=== PATIENT | male | born 1950 | race Caucasian/White ===

== ENCOUNTER 2019-03-12 21:57 | Observation (INO) ==
[2019-03-13] MEDS ORDERED: Morphine Sulfate 2 MG/ML SYRINGE IVP ONE ×2 (00:54→01:20)
--- NOTE | 2019-03-13 01:09 | Emergency Department Note ---
Disposition Clinical Impression: Cholecystitis Disposition: Admitted As Inpatient Condition: Good Forms: ED Satisfaction Letter, Work/School Release Time of Disposition: 01:17 Abdominal Pain HPI - General Chief Complaint: ED Abdominal Pain Stated Complaint: Abd Pain Time Seen by Provider: 03/13/19 01:04 Source: patient - History of Present Illness HPI Narrative: Patient 68-year-old gentleman who presents to the emergency department with chief complaint of right upper quadrant abdominal pain. The patient was transferred from the [place] after he presented with right upper quadrant abdominal pain and CT scan consistent with acute acalculous cholecystitis. The patient was seen in the emergency department over the weekend after having similar episode several resolved with Toradol. The patient was seen by surgery in the emergency department and offered admission at that time but stated he was feeling better and wish to follow up as an outpatient. The patient was seen by Dr. Gamboa in the office today but then this evening started having pain in his right upper quadrant around 7 PM. The patient states pain is sharp and not improved by anything nor is it worsened by anything. Pain Scale: 3 - Related Data Home Medications Medication Instructions Recorded Confirmed Amlodipine Besylate 10 mg PO DAILY 03/10/19 03/10/19 Aspirin [Adult Aspirin] 81 mg PO DAILY 03/10/19 03/10/19 Carvedilol [Coreg] 6.25 mg PO BID 03/10/19 03/10/19 Lisinopril 30 mg PO DAILY 03/10/19 03/10/19 Pravastatin Sodium [Pravachol] 40 mg PO DAILY 03/10/19 03/10/19 Previous Rx's Medication Instructions Recorded Amoxicillin/Clavulanate [Augmentin] 875 mg PO BIDWM #10 tablet 03/10/19 Allergies Allergy/AdvReac Type Severity Reaction Status Date / Time antihistamines AdvReac Numbness Uncoded 03/12/19 22:05 All systems ED: reviewed and negative except as stated. Abdominal Pain PMH - Past Medical History Medical history: Reports: hypertension Psychiatric history: Reports: no psych history - Social History Smoking status: Current every day smoker Alcohol use: Reports: none Drug use: Reports: none Physical Exam General: Conversant and pleasant interactive and nontoxic. Head: Normocephalic/atraumatic Eyes:PERRLA, EOMI, no conjunctivitis Nares: Without d/c. Ears: No erythema or d/c noted. Oralpharnyx: P&MMM noted, Neck: Supple, no JVD or CUSTOMER PROFESSIONAL noted. Cardovascular: regular rate and rhythm without murmur, brisk capillary refill, no peripheral edema. Lungs: Clear to ascultation bilaterally, non-labored Abd: Soft tender to palpation in the right upper quadrant, Non Distended, no guarding, no rebound. : Defered Extremities: moves all extremities equally Neuro: AOx3, no obvious gross neuro deficit Psych: Normal Affect Derm: No rash noted - General General appearance: alert, in no apparent distress Course Course Narrative: Given the patient's finding of his labs and CT scan and recent evaluation the case was discussed with Dr. Fay who is rayon coner for general surgery. The patient was admitted to the surgical service and will receive further care in the inpatient setting. Vital Signs Temperature 97.6 F 03/12/19 22:03 Pulse Rate 60 03/12/19 22:03 Respiratory Rate 16 03/12/19 22:03 Blood Pressure 126/66 03/12/19 22:03 O2 Sat by Pulse Oximetry 99 03/12/19 22:03 Temperature 97.6 F 03/12/19 22:03 Pulse Rate 60 03/12/19 22:03 Respiratory Rate 16 03/12/19 22:03 Blood Pressure 126/66 03/12/19 22:03 O2 Sat by Pulse Oximetry 99 03/12/19 22:03 Oxygen Delivery Oxygen Delivery Room Air
[2019-03-13] MEDS ORDERED: Ondansetron 4 MG/2 ML VIAL IVP PRN ×2 (02:44→18:14)
[2019-03-13] MEDS ORDERED: 0.9 % Sodium Chloride 1,000 ML IVC SCH (02:45)
[2019-03-13] MEDS ORDERED: cefOXitin 1,000 MG, Sodium Chloride IRRigation 1,000 ML IR ONE ×2 (06:00→18:14)
[2019-03-13] MEDS: cefOXitin 2,000 MG in Water for inj. (sterile) 20 ML IVP SCH ×3 (07:43→23:23)
[2019-03-13] MEDS ORDERED: *HR* Promethazine 25 MG/ML VIAL IVP PRN ×3 (07:48→18:14)
[2019-03-13] MEDS ORDERED: cefOXitin 1,000 MG, 0.9 % Sodium Chloride 1,000 ML IR ONE (08:00)
[2019-03-13 08:07] LABS: Basophils % 0.8 %; Eosinophils # 0.1 K/mcL (0.0-0.6); Eosinophils % 1.5 %; Hematocrit 43.1 % (37.5-50.1); Immature Granulocytes % 0.4 % (0-4); Lymphocytes # 1.3 K/mcL (0.6-4.6); Mean Corpuscular HGB Conc 32.5 g/dL (31.6-35.5); Mean Corpuscular Hemoglobin 31.1 pg (28.0-33.3); Mean Corpuscular Volume 95.8 fL (83.0-100.0); Mean Platelet Volume 10.5 fL (9.4-12.4); Monocytes # 0.4 K/mcL (0.0-1.3); Monocytes % 9.1 %; Platelet Count 180 K/mcL (140-400); Red Cell Distribution Width 12.9 % (11.5-14.5); Segmented Neutrophils % 61.2 %; White Blood Count 4.8 K/mcL (4.3-11.1)
[2019-03-13 08:14] LABS: INR 1.1; Prothrombin Time 12.8 Seconds (9.4-12.1)
[2019-03-13 08:16] LABS: Activated Partial Thrombo Time 32.7 Seconds (26.0-36.0)
[2019-03-13 08:27] LABS: Alanine Aminotransferase 245 Units/L (7-52); Albumin 3.9 g/dL (3.5-5.7); Albumin/Globulin Ratio 1.9 (1.1-2.2); Alkaline Phosphatase 132 Units/L (34-104); Aspartate Amino Transferase 373 Units/L (13-39); BUN/Creatinine Ratio 14 (6-26); Bilirubin,Direct 1.4 mg/dL (0.0-0.2); Bilirubin,Indirect 0.8 mg/dL (0.0-1.2); Bilirubin,Total 2.2 mg/dL (0.3-1.0); Blood Urea Nitrogen 16 mg/dL (8-23); Carbon Dioxide 30 mEq/L (23-29); Chloride 104 mEq/L (98-107); Globulin 2.1 g/dL (2.4-3.5); Glucose 92 mg/dL (70-105); Magnesium 2.2 mg/dL (1.6-2.6); Osmolality,Calculated 285 (280-300); Phosphorous 3.3 mg/dL (2.7-4.5); Potassium 4.6 mEq/L (3.5-5.1); Sodium 137 mEq/L (136-145); eGFR For African Americans > 60 (> 60); eGFR For Non-African Americans > 60 (> 60)
--- NOTE | 2019-03-13 08:58 | Acute Care Surgery H&P ---
<Meseret Del Angel - Last Filed: 03/13/19 08:46> Date of Encounter: 03/13/19 Time of Encounter: 07:30 Assessment and Plan (1) Cholecystitis Current Visit: Yes Status: Acute The assessment and plan as outlined above was discussed with the patient and/or family members who expressed understanding and agreement. All questions were answered. Patient is recommended to undergo a laparoscopic cholecystectomy with intraoperative cholangiogram. The recommendations, risks, and benefits have been expressly reviewed with the patient at the bedside by Dr. Fay. Patient is agreeable to proceed. A signed consent is placed on his hard chart. Patient states on a daily basis CT does vigorous guarding and yardwork, is able to walk up more than 2 flights of stairs without chest pain or shortness of breath. He is able to achieve greater than 4 DONNIE. We will obtain a preop EKG and no further cardiovascular workup is necessary for this urgent surgical procedure. NPO IVF Protonix EPCDs Heparin SQ after surgery Pain control (2) HTN, goal below 130/80 Current Visit: Yes Status: Chronic The assessment and plan as outlined above was discussed with the patient and/or family members who expressed understanding and agreement. All questions were answered. Continue home meds closely monitor (3) Smoking history Current Visit: Yes Status: Acute The assessment and plan as outlined above was discussed with the patient and/or family members who expressed understanding and agreement. All questions were answered. Began incentive spirometry training prior to surgery consult respiratory therapy for duonebs treatments x2 prior to surgery smoking cessation encouraged History of Present Illness Chief complaint: Right uper abdominal pain HPI: Mr. Childers is a 68 year old male who was transferred from the [place] for Acute Cholecystitis. Pt was to be seen by Dr. Sharp in the office on 03/12/2019 to plan for elective cholecystectomy, but cancelled pending [place] approval, but then at 7pm last night he began having severe RUQ and epigastric pain. A CT of the abdomen and pelvis with IV contrast was completed on 03/10/2019 at the [place] which noted a calculus cholecystitis. He was transferred to [facility] for further workup. Presently he reports right upper quadrant and mid abdomen pain that is 8 out of 10, sharp, constant, worse with palpation. He denies fever, chills, headache, dizziness, chest pain, shortness of breath, urinary signs or symptoms, or generalized weakness. Past Med Surg Social Fam HX - Past Medical History Source: patient, old records reviewed Medical history: hyperlipidemia, hypertension Psychiatric history: no psych history - Past Surgical History Additional surgical history: apr [id number] fatty tumor removed - Social History Smoking Status: Current every day smoker Smokeless Tobacco Status: No Alcohol use: none Drug use: none Occupational status: retired Current living situation: Home - Independent Activity Level: Independent ambulation Recent Out of Country Travel Within the Last 8 Weeks: No Exposure or Possible Exposure to Illness During Travel: No Medications and Allergies Amlodipine Besylate 10 mg PO DAILY 03/10/19 [History] Carvedilol [Coreg] 6.25 mg PO BID 03/10/19 [History] Lisinopril 30 mg PO DAILY 03/10/19 [History] Pravastatin Sodium [Pravachol] 40 mg PO DAILY 03/10/19 [History] Aspirin [Adult Aspirin] 81 mg PO DAILY 03/13/19 [History] Allergy/AdvReac Type Severity Reaction Status Date / Time antihistamines AdvReac Numbness Uncoded 03/12/19 22:05 Review of Systems All systems PM: reviewed and no additional remarkable complaints except as stated All systems PM: The remainder of the systems were reviewed and are negative General Surgery Exam Initial Vital Signs Temp Pulse Resp BP Pulse Ox 97.6 F 60 16 126/66 99 03/12/19 22:03 03/12/19 22:03 03/12/19 22:03 03/12/19 22:03 03/12/19 22:03 - General physical appearance well nourished, no distress, other - Neck trachea midline - Respiratory normal expansion, normal respiratory effort - Cardiovascular Cardiovascular exam: Present: RRR - Abdomen Abdomen general surgery: Present: bowel sounds present, soft, tender Abdominal Tenderness: Present: epigastic, RUQ - Integumentary Integumentary general surgery: Present: warm and dry - Neurologic Present: normal sensation - Musculoskeletal Present: normal gait, normal posture - Psychiatric Psychiatric general surgery: Present: appropriate, oriented to person, oriented to place, oriented to time, speech is normal, memory intact Results - Labs 03/13/19 07:56 03/13/19 07:56 Abnormal lab results PT 12.8 Seconds (9.4-12.1) H 03/13/19 07:56 Carbon Dioxide 30 mEq/L (23-29) H 03/13/19 07:56 Total Bilirubin 2.2 mg/dL (0.3-1.0) H 03/13/19 07:56 Direct Bilirubin 1.4 mg/dL (0.0-0.2) H 03/13/19 07:56 AST 373 Units/L (13-39) H 03/13/19 07:56 ALT 245 Units/L (7-52) H 03/13/19 07:56 Alkaline Phosphatase 132 Units/L (34-104) H 03/13/19 07:56 Serum Total Protein 6.0 g/dL (6.4-8.9) L 03/13/19 07:56 Globulin 2.1 g/dL (2.4-3.5) L 03/13/19 07:56 Diabetes panel 03/13/19 Range/Units 07:56 Sodium 137 (136-145) mEq/L Potassium 4.6 (3.5-5.1) mEq/L Chloride 104 (98-107) mEq/L Carbon Dioxide 30 H (23-29) mEq/L BUN 16 (8-23) mg/dL Creatinine 1.17 (0.70-1.30) mg/dL Glucose 92 (70-105) mg/dL Calcium 9.0 (8.6-10.3) mg/dL AST 373 H (13-39) Units/L ALT 245 H (7-52) Units/L Alkaline Phosphatase 132 H (34-104) Units/L Albumin 3.9 (3.5-5.7) g/dL Calcium panel 03/13/19 Range/Units 07:56 Calcium 9.0 (8.6-10.3) mg/dL Phosphorus 3.3 (2.7-4.5) mg/dL Albumin 3.9 (3.5-5.7) g/dL Pituitary panel 03/13/19 Range/Units 07:56 Sodium 137 (136-145) mEq/L Potassium 4.6 (3.5-5.1) mEq/L Chloride 104 (98-107) mEq/L Carbon Dioxide 30 H (23-29) mEq/L BUN 16 (8-23) mg/dL Creatinine 1.17 (0.70-1.30) mg/dL Glucose 92 (70-105) mg/dL Calcium 9.0 (8.6-10.3) mg/dL Adrenal panel 03/13/19 Range/Units 07:56 Sodium 137 (136-145) mEq/L Potassium 4.6 (3.5-5.1) mEq/L Chloride 104 (98-107) mEq/L Carbon Dioxide 30 H (23-29) mEq/L BUN 16 (8-23) mg/dL Creatinine 1.17 (0.70-1.30) mg/dL Glucose 92 (70-105) mg/dL Calcium 9.0 (8.6-10.3) mg/dL Total Bilirubin 2.2 H (0.3-1.0) mg/dL AST 373 H (13-39) Units/L ALT 245 H (7-52) Units/L Alkaline Phosphatase 132 H (34-104) Units/L Albumin 3.9 (3.5-5.7) g/dL All other labs normal. - Imaging CT scan - abdomen: report reviewed CT scan - pelvis: report reviewed - VTE Reasons for not Prescribing Prophylaxis: Treatment not Indicated - Low risk for VTE <Nakul Fay - Last Filed: 03/13/19 14:48> Date of Encounter: 03/13/19 History of Present Illness HPI: Mr. Childers is a 68 year old male Review of Systems All systems PM: The remainder of the systems were reviewed and are negative General Surgery Exam Initial Vital Signs Temp Pulse Resp BP Pulse Ox 97.6 F 60 16 126/66 99 03/12/19 22:03 03/12/19 22:03 03/12/19 22:03 03/12/19 22:03 03/12/19 22:03 Results - Labs 03/13/19 07:56 03/13/19 07:56 Abnormal lab results PT 12.8 Seconds (9.4-12.1) H 03/13/19 07:56 Carbon Dioxide 30 mEq/L (23-29) H 03/13/19 07:56 Total Bilirubin 2.2 mg/dL (0.3-1.0) H 03/13/19 07:56 Direct Bilirubin 1.4 mg/dL (0.0-0.2) H 03/13/19 07:56 AST 373 Units/L (13-39) H 03/13/19 07:56 ALT 245 Units/L (7-52) H 03/13/19 07:56 Alkaline Phosphatase 132 Units/L (34-104) H 03/13/19 07:56 Serum Total Protein 6.0 g/dL (6.4-8.9) L 03/13/19 07:56 Globulin 2.1 g/dL (2.4-3.5) L 03/13/19 07:56 Diabetes panel 03/13/19 Range/Units 07:56 Sodium 137 (136-145) mEq/L Potassium 4.6 (3.5-5.1) mEq/L Chloride 104 (98-107) mEq/L Carbon Dioxide 30 H (23-29) mEq/L BUN 16 (8-23) mg/dL Creatinine 1.17 (0.70-1.30) mg/dL Glucose 92 (70-105) mg/dL Calcium 9.0 (8.6-10.3) mg/dL AST 373 H (13-39) Units/L ALT 245 H (7-52) Units/L Alkaline Phosphatase 132 H (34-104) Units/L Albumin 3.9 (3.5-5.7) g/dL Calcium panel 03/13/19 Range/Units 07:56 Calcium 9.0 (8.6-10.3) mg/dL Phosphorus 3.3 (2.7-4.5) mg/dL Albumin 3.9 (3.5-5.7) g/dL Pituitary panel 03/13/19 Range/Units 07:56 Sodium 137 (136-145) mEq/L Potassium 4.6 (3.5-5.1) mEq/L Chloride 104 (98-107) mEq/L Carbon Dioxide 30 H (23-29) mEq/L BUN 16 (8-23) mg/dL Creatinine 1.17 (0.70-1.30) mg/dL Glucose 92 (70-105) mg/dL Calcium 9.0 (8.6-10.3) mg/dL Adrenal panel 03/13/19 Range/Units 07:56 Sodium 137 (136-145) mEq/L Potassium 4.6 (3.5-5.1) mEq/L Chloride 104 (98-107) mEq/L Carbon Dioxide 30 H (23-29) mEq/L BUN 16 (8-23) mg/dL Creatinine 1.17 (0.70-1.30) mg/dL Glucose 92 (70-105) mg/dL Calcium 9.0 (8.6-10.3) mg/dL Total Bilirubin 2.2 H (0.3-1.0) mg/dL AST 373 H (13-39) Units/L ALT 245 H (7-52) Units/L Alkaline Phosphatase 132 H (34-104) Units/L Albumin 3.9 (3.5-5.7) g/dL All other labs normal. - Attending Attestation The patient is seen and evaluated on morning rounds with the acute care surgery team. The patient has acute acalculous cholecystitis and will have laparoscopic cholecystectomy later today. I discussed risks and benefits of the patient he understands wishes to proceed Nakul Fay MD FACS
[2019-03-13] MEDS ORDERED: amLODIPine 5 MG TABLET PO SCH (09:00)
[2019-03-13] MEDS ORDERED: Pantoprazole 40 MG VIAL IVP SCH (09:00)
[2019-03-13] MEDS: Ipratropium/Albuterol Neb 3 ML IH SCH ×2 (10:12→12:26)
[2019-03-13 10:15] LABS: Lipase 29 Units/L (11-82)
--- NOTE | 2019-03-13 12:33 | Electrocardiograph Report ---
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
[2019-03-13] MEDS ORDERED: *HR* Midazolam HCl 2 MG/2 ML VIAL ONE (14:53)
[2019-03-13] MEDS ORDERED: *HR* FentaNYL (PF) 100 MCG/2 ML VIAL ONE (14:53)
[2019-03-13] MEDS ORDERED: Lidocaine -MPF 2% 2 ML VIAL ONE (14:53)
[2019-03-13] MEDS ORDERED: *HR* Propofol 200 MG/20 ML VIAL IVP ONE (14:53)
[2019-03-13] MEDS ORDERED: Isovue-300 50 ML VIAL ONE (15:40)
--- NOTE | 2019-03-13 15:54 | Anesthesia Evaluation PreOp ---
Date of Encounter: 03/13/19 Time of Encounter: 15:52 - Past History Planned Operation: LAP CHOLECYSTECTOMY Cardiac History: HTN, Hyperlipidemia Pulmonary History: Smoker BREAKFAST HOST History: Denies Any Significant HX Other Medical History: Denies Any Significant HX Anesthesia History: No Prior Anesthetic Complications, Past Anesthesia Alcohol Use: none Drug use: none Medications and Allergies Amlodipine Besylate 10 mg PO DAILY 03/10/19 [History] Carvedilol [Coreg] 6.25 mg PO BID 03/10/19 [History] Lisinopril 30 mg PO DAILY 03/10/19 [History] Pravastatin Sodium [Pravachol] 40 mg PO DAILY 03/10/19 [History] Aspirin [Adult Aspirin] 81 mg PO DAILY 03/13/19 [History] Allergy/AdvReac Type Severity Reaction Status Date / Time antihistamines AdvReac Numbness Uncoded 03/12/19 22:05 - Meds/Allergy Pre-op Review Medications Reviewed: Yes Allergies Reviewed: Yes Beta Blockers on Current Med List: Yes If Beta Blockers taken, Date/Time (Last Dose taken): 954 Anesthesia Results - Labs 03/13/19 07:56 03/13/19 07:56 - Imaging EKG: report reviewed (SINUS BRADYCARDIA RIGHT BUNDLE BRANCH BLOCK) Anesthesia Exam Vital Signs/O2 Sat/Glucose, Most Recent Temp Pulse Resp BP Pulse Ox 97.7 F 56 16 101/60 94 03/13/19 10:52 03/13/19 14:47 03/13/19 12:26 03/13/19 10:52 03/13/19 12:26 Blood Glucose* 84 Weight: 89 KG - BMI 27 NPO (# of Hours): 8 - HEENT Mallampati: I Teeth: Normal - Cardiac Rhythm: Regular - Pulmonary Breath Sounds: bilateral Clear Anesthesia Assess/Plan ASA Score: 2 Anesthetic Plan: General Monitoring Plan: Standard Monitors Recovery Plan: PACU
[2019-03-13] MEDS ORDERED: *HR* OxyCODONE Immed Rel 5 MG TABLET PO PRN (15:57)
[2019-03-13] MEDS ORDERED: Albuterol 2.5 MG/3 ML NEBULIZER IH ONE (15:57)
[2019-03-13] MEDS ORDERED: Ondansetron 4 MG/2 ML VIAL IVP ONE (15:57)
[2019-03-13] MEDS ORDERED: Ketorolac 30 MG/ML VIAL IVP ONE (15:57)
[2019-03-13] MEDS ORDERED: Acetaminophen IV 1,000 MG/100 ML INFUS..BTL IVPB ONE (15:57)
[2019-03-13] MEDS ORDERED: *HR* HYDROmorphone (PF) 1 MG/ML SYRINGE IVP PRN (15:57)
[2019-03-13] MEDS ORDERED: *HR* Labetalol 20 MG/4 ML SYRINGE IVP PRN (15:57)
[2019-03-13] MEDS ORDERED: EPHEDrine 50 MG/ML VIAL ONE (16:23)
[2019-03-13] MEDS ORDERED: Dexamethasone 4 MG/ML VIAL ONE (16:29)
[2019-03-13] MEDS ORDERED: Neostigmine Methylsulfate 3 MG/3 ML SYRINGE ONE (16:30)
--- NOTE | 2019-03-13 17:15 | Operative Note ---
Date of procedure: 03/13/19 Pre-op diagnosis: Acute cholecystitis Post-op diagnosis: other (Obstructed gallbladder and choledocholithiasis) Procedure: Laparoscopic cholecystectomy, cholangiogram Anesthesia: BETIA Surgeon: Nakul Fay Was there an assistant women's tennis coach present: Yes Golf Course Laborer: Viktoriya Summers Estimated blood loss (cc): 25 Specimen: Gallbladder and contents Condition: stable Disposition: PACU Procedure in Detail: Laparoscopic cholecystectomy and intraoperative cholangiogram Operative procedure: after informed consent and appropriate patient identification, the patient was taken to the major operating suite and placed supine position and given adequate general endotracheal anesthesia. The abdomen was prepped and draped in sterile fashion utilizing ChloraPrep standard draping techniques. Timeout was taken and the patient was identified. I made a vertical midline incision below the umbilicus and dissected down to level of fascia. I placed 2 traction stitches of 0 vicryl in the midline fascia and the abdominal cavity was entered visually. A Vera trocar was placed in the abdomen and the abdomen was insufflated to 15 mmHg pressure CO2. The gallbladder was visualized. I placemed an 11 port in the subxiphoid area and two 5 mm ports in the subcostal area. The gallbladder was identified and completely obstructed. I attempted to aspirate the contents with a decompression needle, however, I was unable to get any fluid out of the ga llbladder. This made the procedure somewhat more difficult. The gallbladder was grasped and elevated. A variety of blunt and sharp dissection techniques were used to isolate the cystic duct and cystic artery. The cystic duct was quite large the common bile duct was very dilated. The cystic artery was controlled with 2 surgical clips proximally and one distally and it was divided. I placed a surgical clip on the neck the gallbladder and obtained an intraoperative cholangiogram using 10 mL of Isovue. Intraoperative cholangiogram demonstrated choledocholithiasis with distal impaction of the stone.. The cholangiocatheter was removed and the cystic duct was controlled with 2 surgical clips proximally and was divided. The cystic duct was large and I did not have complete competence my clip placement. A #10 Juan-Glaser drain was placed to control any leak from the cystic duct stump. The gallbladder was removed from the gallbladder fossae using electrocautery. The gallbladder was removed from the abdomen through the #11 port site using a specimen bag and stone disimpaction. I replaced the #11 port and irrigated with copious amounts of antibiotic containing solution. There was no evidence of bleeding or bile leak. All trochars were removed. Fascia was closed with 0 Nurolon, 0 Vicryl and the skin with 2-0 and 4-0 Vicryl. He tolerated the procedure well and was transferred to recovery in stable condition
--- NOTE | 2019-03-13 18:01 | Anesthesia Evaluation Post Op ---
Date of Encounter: 03/13/19 Time of Encounter: 18:00 - Vital Signs Vital Signs: Vital Signs/O2 Sat, Most Current Temp Pulse Resp BP Pulse Ox 97.4 F L 51 16 123/66 100 03/13/19 17:37 03/13/19 17:47 03/13/19 17:47 03/13/19 17:47 03/13/19 17:47 - Lungs Lungs: Clear Ascult./Percussion - Airway Airway: Non-obstructed - Cardiovascular Regular Rate - Mental Status Mental Status: Alert & Oriented, Answers Appropriately - Pain Pain Scale: 2 Pain Scale used: Numeric (1 - 10) - Nausea Vomiting Nausea Vomiting: Not Present - Hydration Hydration: Tolerates oral liquids, Has not voided Notes: 03/13/19 18:00 denies complaints/concerns - Discharge PostOp Status: Transfer Patient to floor
[2019-03-13] MEDS: 0.9 % Sodium Chloride 1,000 ML IVC SCH (23:23)
[2019-03-14 07:02] LABS: Hematocrit 42.2 % (37.5-50.1); Hemoglobin 14.1 g/dL (12.9-16.9); Immature Granulocytes % 0.3 % (0-4); Lymphocytes # 0.7 K/mcL (0.6-4.6); Lymphocytes % 9.9 %; Mean Corpuscular HGB Conc 33.4 g/dL (31.6-35.5); Mean Corpuscular Hemoglobin 31.5 pg (28.0-33.3); Mean Corpuscular Volume 94.4 fL (83.0-100.0); Mean Platelet Volume 11.1 fL (9.4-12.4); Monocytes # 0.2 K/mcL (0.0-1.3); Monocytes % 3.5 %; Neutrophils # 5.7 K/mcL (1.6-8.9); Platelet Count 191 K/mcL (140-400); Red Blood Count 4.47 M/mcL (4.19-5.50); Red Cell Distribution Width 12.8 % (11.5-14.5); Segmented Neutrophils % 86.3 %; White Blood Count 6.7 K/mcL (4.3-11.1)
[2019-03-14 07:23] LABS: BUN/Creatinine Ratio 20 (6-26); Blood Urea Nitrogen 17 mg/dL (8-23); Calcium 8.6 mg/dL (8.6-10.3); Carbon Dioxide 26 mEq/L (23-29); Chloride 102 mEq/L (98-107); Glucose 158 mg/dL (70-105); Osmolality,Calculated 283 (280-300); Potassium 4.8 mEq/L (3.5-5.1); Sodium 134 mEq/L (136-145); eGFR For African Americans > 60 (> 60); eGFR For Non-African Americans > 60 (> 60)
[2019-03-14 09:45] LABS: Alanine Aminotransferase 278 Units/L (7-52); Albumin 3.7 g/dL (3.5-5.7); Albumin/Globulin Ratio 1.8 (1.1-2.2); Alkaline Phosphatase 145 Units/L (34-104); Aspartate Amino Transferase 233 Units/L (13-39); Bilirubin,Direct 0.2 mg/dL (0.0-0.2); Bilirubin,Indirect 0.6 mg/dL (0.0-1.2); Bilirubin,Total 0.8 mg/dL (0.3-1.0); Globulin 2.1 g/dL (2.4-3.5); Total Protein 5.8 g/dL (6.4-8.9)
[2019-03-14] MEDS: amLODIPine 5 MG TABLET PO SCH (09:58)
[2019-03-14] MEDS: Pantoprazole 40 MG VIAL IVP SCH (09:59)
[2019-03-14] MEDS: cefOXitin 2,000 MG in Water for inj. (sterile) 20 ML IVP SCH ×2 (10:07→16:30)
[2019-03-14] MEDS: 0.9 % Sodium Chloride 1,000 ML IVC SCH ×2 (10:11→21:00)
--- NOTE | 2019-03-14 11:51 | Gastroenterology Consult Note ---
<RodriguezJameson contreras Tori - Last Filed: 03/14/19 11:49> Date of Encounter: 03/14/19 Time of Encounter: 09:30 - Assessment and plan (1) Choledocholithiasis Current Visit: Yes Status: Acute Assessment and plan: Intraoperative cholangiogram showed choledocholithiasis with distal impaction of the stone. On admission TB 2.2, AST 373, ALT 245, AP 132. Today TB 0.8, AST 233, ALT 278, ALP 145. Plan for ERCP today, keep NPO for procedure. - Time Spent With Patient Total time spent is greater than 50% in coordination of care (as documented) at patient's floor/unit and/or counseling patient: GI History of Present Illness - Data of Consult Patient: new to practice Consult date: 03/14/19 Requesting Physician: Nakul Fay MD - Consult Narrative Reason for consult: Choledocholithiasis History of present illness: Mr. Childers is a 68 year old male with PMHx of HLD and HTN who was transferred from the [place] for acute cholecystitis. Patient he and having severe right upper quadrant and epigastric pain last night and he was sent from the [facility] to [facility] for further evaluation. Dr. Fay laparoscopic cholecystectomy with cholangiogram yesterday. Intraoperative cholangiogram showed choledocholithiasis with distal impaction of the stone. On admission TB 2.2, AST 373, ALT 245, AP 132. Today TB 0.8, AST 233, ALT 278, ALP 145. We were consulted to evaluate choledocholithiasis. Procedures: No record NSAIDs: ASA Anticoagulation: None Past Med Surg Social Fam HX - Past Medical History Medical history: hyperlipidemia, hypertension Psychiatric history: no psych history - Past Surgical History Additional surgical history: apr [id number] fatty tumor removed - Social History Smoking Status: Current every day smoker Smokeless Tobacco Status: No Alcohol use: none Drug use: none - Gastrointestinal Gastrointestinal: Present: as per HPI - Constitutional Constitutional: as per HPI - EENT Eyes: as per HPI Ears: Present: as per HPI Nose, mouth and throat: Present: as per HPI - Cardiovascular Cardiovascular ROS: Present: as per HPI - Respiratory Respiratory IM: Present: as per HPI - Genitourinary Genitourinary: Absent: change in color, Urinary frequency - Neurological ROS Neurological GI: Present: as per HPI - Hematologic/Lymphatic Hematologic/Lymphatic pediatric: Present: as per HPI - Musculoskeletal Musculoskeletal ROS GI: Present: as per HPI - Integumentary Integumentary GI: Present: as per HPI - Psychiatric ROS Psychiatric GI: Present: as per HPI - Endocrine Endocrine IM: Present: as per HPI - Constitutional Vitals: Temp Pulse Resp BP Pulse Ox 97.6 F 51 16 124/63 99 03/14/19 06:43 03/14/19 06:43 03/14/19 06:43 03/14/19 06:43 03/14/19 06:43 General appearance: Present: cooperative, A&O X 3, no acute distress, answers questions appropriately - Head Head exam: Present: atraumatic, normocephalic - Eye Eye exam: Present: normal appearance, sclera anicteric - ENT ENT exam: Present: mucous membranes dry - Neck Neck exam general surgery: Present: normal inspection, trachea midline - Respiratory Respiratory exam: Present: CTAB. Absent: rales, rhonchi - Cardiovascular Cardiovascular exam: Present: RRR, +S1, +S2 - GI/Abdominal GI/Abdominal exam: Present: normal bowel sounds, soft, tenderness, no peritoneal signs. Absent: distended, firm, guarding Additional comments: JERRY drain RUQ, surgical sites C/D/I - Rectal Rectal exam: Present: deferred - Extremities Exam Extremities exam: Present: warm - Neurological Exam Neurological exam: Present: no focal deficits - Psychiatric Psychiatric exam: Present: normal affect, normal mood - Skin Skin exam: Present: dry, intact, normal color, warm Results - Labs CBC & Chem 7: 03/14/19 05:35 03/14/19 05:35 Labs: Last Result 03/14/19 05:35 Calcium 8.6 Entire Visit 03/14/19 03/14/19 05:35 05:35 Hgb 14.1 Hct 42.2 Total Bilirubin 0.8 AST 233 H ALT 278 H - ABG ABG results: PT/INR, D-dimer PT 12.8 Seconds (9.4-12.1) H 03/13/19 07:56 - Impressions Impressions Cholangiogram,Operative 03/13/19 16:35 IMPRESSION: Choledocholithiasis with stone in the distal common bile duct causing mild biliary ductal dilatation. Status post cholecystectomy without evidence of leak. D/ / 03/13/2019 17:09:19 Gaston Robles MD / leslee Interpreting Provider: Gaston Robles MD Consult Discharge Plan - Plan Instructions: Laparoscopic Cholecystectomy (DC) Additional Instructions: General Surgical Discharge Instructions 1. No pushing, pulling, or lifting greater than 15 lbs for 2-4 weeks (depending upon procedure). 2. You may remove your dressings and shower beginning today, but no tub baths, soaking, or swimming for 2 weeks. 3. No driving for two weeks unless otherwise specified and then you may resume driving when you are off narcotics and are safe to react in a car. 4. Take ibuprofen every 8 hours for discomfort. If this does not relieve discomfort, you may take the as needed Percocet. Eat a small snack with pain medication as this will help reduce the risk of nausea. Take narcotics as directed. Do not take more narcotics then directed and do not share your narcotics with any other person. Do not drink alcohol while on narcotics. You can take the Zofran/ondansetron if needed for nausea or with a dose of narcotics to prevent nausea. 5. Take stool softeners (Colace) or a water based laxative (Miralax) while taking narcotics. You may hold for loose stools. 6. Report any fevers greater than 100.5F, increase abdominal discomfort, drainage that looks like pus, increased redness or pain at the surgical site, or any vomiting. 7. Report any pain in the calves, shortness of breath, or rapid heartbeat. 8. Follow-up in the office as directed. 9. If you were prescribed antibiotics, do not stop them without talking to your provider. Referrals: Meseret Del Angel CNP [Advanced Practice Nurse] - 03/27/19 3:30 pm [facility] [Primary Care Provider[facility] - <Salazar Pineda - Last Filed: 03/14/19 17:49> Date of Encounter: 03/14/19 Time of Encounter: 11:00 - Time Spent With Patient Total time spent is greater than 50% in coordination of care (as documented) at patient's floor/unit and/or counseling patient: GI History of Present Illness - Data of Consult Requesting Physician: Nakul Fay MD - Consult Narrative History of present illness: Mr. Childers is a 68 year old male - Constitutional Vitals: Temp Pulse Resp BP Pulse Ox 97.4 F L 69 17 158/68 94 03/14/19 16:45 03/14/19 16:45 03/14/19 16:45 03/14/19 16:45 03/14/19 16:45 Results - Labs CBC & Chem 7: 03/14/19 05:35 03/14/19 05:35 Labs: Last Result 03/14/19 05:35 Calcium 8.6 Entire Visit 03/14/19 03/14/19 05:35 05:35 Hgb 14.1 Hct 42.2 Total Bilirubin 0.8 AST 233 H ALT 278 H - ABG ABG results: PT/INR, D-dimer PT 12.8 Seconds (9.4-12.1) H 03/13/19 07:56 - Impressions Impressions Cath/Invasive Procedure 03/14/19 00:00 IMPRESSION: ERCP images demonstrating choledocholithiasis and placement of a common bile duct stent status post cholecystectomy. D/ / 03/14/2019 15:30:40 Gaston Robles MD / vel Interpreting Provider: Gaston Robles MD - Attending Attestation I have personally performed a face to face evaluation on this patient. I have reviewed and agree with the care plan. History and Exam by me shows: In seen denies abdominal pain on examination abdomen is benign assessment: Patient with choledocholithiasis with abnormal LFTs. GB was was taken out yesterday by Dr. Fay. Rec: ERCP today
--- NOTE | 2019-03-14 12:16 | AcuteCareSurgery Progress Note ---
Date of Encounter: 03/14/19 Time of Encounter: 12:12 - Assessment and Plan (1) Cholecystitis Current Visit: Yes Status: Acute 68M POD #1 s/p lap dayna with ioc; found to have choledocholithiasis; otherwise recovering as expected NPO plan for ERCP today okay for CLD after ERCP; can advance as tolerated IVF: SLIV when tolerating PO activity as tolerated plan for d.c on 03/15 Subjective Patient reports: no new complaints, feels better, still having pain, pain is less, afebrile Objective Vital Signs - Last 8 Hours Temp Pulse Resp BP Pulse Ox 03/14/19 12:02 97.5 F L 76 18 128/70 96 03/14/19 06:43 97.6 F 51 16 124/63 99 Intake and Output 03/13/19 03/14/19 03/14/19 23:59 07:59 15:59 Intake Total 20 / 875 0 / 1000 1000 / 1000 Output Total 345 / 345 / 20 0 / 20 Balance -325 / 530 -20 / 980 1000 / 980 Intake: IV Fluids 20 / 875 1000 / 1000 0.9 % Sodium Chloride 1,000 ML 1000 / 1000 @ 75 mls/hr IVC .[id number] DENISE Rx #:[id number] Mefoxin 2,000 MG In Water for inj. (sterile) 20 ML @ 300 mls/ hr IVP Q8HR DENISE Rx#:[id number] Oral 0 / 0 0 / 0 Output: Urine 300 / 300 0 / 0 0 / 0 Estimated Blood Loss 25 / 25 Wound Drainage 20 Right Abdomen Other: Meal npo Percent of Meal Consumed 0% # Voids 1 Weight 89.1 kg Blood Glucose* 153 139 Patient Weight 03/14/19 23:59 Weight 89.1 kg - General physical appearance no distress - Eyes other (no scleral icterus) - Respiratory normal expansion, normal respiratory effort - Cardiovascular Cardiovascular exam: Present: RRR - Abdomen Abdomen: Present: soft, tender (appropriately tender) - Incision Incision: Present: clean and dry, intact - Neurologic CN 2-12 grossly intact - Psychiatric oriented to time, oriented to person, oriented to place - Labs 03/14/19 05:35 03/14/19 05:35 Diabetes panel 03/14/19 Range/Units 05:35 Sodium 134 L (136-145) mEq/L Potassium 4.8 (3.5-5.1) mEq/L Chloride 102 (98-107) mEq/L Carbon Dioxide 26 (23-29) mEq/L BUN 17 (8-23) mg/dL Creatinine 0.87 (0.70-1.30) mg/dL Glucose 158 H (70-105) mg/dL Calcium 8.6 (8.6-10.3) mg/dL AST 233 H (13-39) Units/L ALT 278 H (7-52) Units/L Alkaline Phosphatase 145 H (34-104) Units/L Albumin 3.7 (3.5-5.7) g/dL Calcium panel 03/14/19 Range/Units 05:35 Calcium 8.6 (8.6-10.3) mg/dL Albumin 3.7 (3.5-5.7) g/dL Pituitary panel 03/14/19 Range/Units 05:35 Sodium 134 L (136-145) mEq/L Potassium 4.8 (3.5-5.1) mEq/L Chloride 102 (98-107) mEq/L Carbon Dioxide 26 (23-29) mEq/L BUN 17 (8-23) mg/dL Creatinine 0.87 (0.70-1.30) mg/dL Glucose 158 H (70-105) mg/dL Calcium 8.6 (8.6-10.3) mg/dL Adrenal panel 03/14/19 Range/Units 05:35 Sodium 134 L (136-145) mEq/L Potassium 4.8 (3.5-5.1) mEq/L Chloride 102 (98-107) mEq/L Carbon Dioxide 26 (23-29) mEq/L BUN 17 (8-23) mg/dL Creatinine 0.87 (0.70-1.30) mg/dL Glucose 158 H (70-105) mg/dL Calcium 8.6 (8.6-10.3) mg/dL Total Bilirubin 0.8 (0.3-1.0) mg/dL AST 233 H (13-39) Units/L ALT 278 H (7-52) Units/L Alkaline Phosphatase 145 H (34-104) Units/L Albumin 3.7 (3.5-5.7) g/dL - VTE Reasons for not Prescribing Prophylaxis: Treatment not Indicated - Low risk for VTE Consult Discharge Plan - Plan Instructions: Laparoscopic Cholecystectomy (DC) Additional Instructions: General Surgical Discharge Instructions 1. No pushing, pulling, or lifting greater than 15 lbs for 2-4 weeks (depending upon procedure). 2. You may remove your dressings and shower beginning today, but no tub baths, soaking, or swimming for 2 weeks. 3. No driving for two weeks unless otherwise specified and then you may resume driving when you are off narcotics and are safe to react in a car. 4. Take ibuprofen every 8 hours for discomfort. If this does not relieve discomfort, you may take the as needed Percocet. Eat a small snack with pain medication as this will help reduce the risk of nausea. Take narcotics as directed. Do not take more narcotics then directed and do not share your narcotics with any other person. Do not drink alcohol while on narcotics. You can take the Zofran/ondansetron if needed for nausea or with a dose of narcotics to prevent nausea. 5. Take stool softeners (Colace) or a water based laxative (Miralax) while taking narcotics. You may hold for loose stools. 6. Report any fevers greater than 100.5F, increase abdominal discomfort, drainage that looks like pus, increased redness or pain at the surgical site, or any vomiting. 7. Report any pain in the calves, shortness of breath, or rapid heartbeat. 8. Follow-up in the office as directed. 9. If you were prescribed antibiotics, do not stop them without talking to your provider. Referrals: Meseret Del Angel CNP [Advanced Practice Nurse] - 03/27/19 3:30 pm [facility]PC[facility] [Primary Care Provider] -
--- NOTE | 2019-03-14 13:09 | Anesthesia Evaluation PreOp ---
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: Denies Any Significant HX Other Medical History: Denies Any Significant HX Anesthesia History: No Prior Anesthetic Complications, Past Anesthesia (lap dayna 03-13-19) Alcohol Use: none Drug use: none Medications and Allergies Amlodipine Besylate 10 mg PO DAILY 03/10/19 [History] Carvedilol [Coreg] 6.25 mg PO BID 03/10/19 [History] Lisinopril 30 mg PO DAILY 03/10/19 [History] Pravastatin Sodium [Pravachol] 40 mg PO DAILY 03/10/19 [History] Aspirin [Adult Aspirin] 81 mg PO DAILY 03/13/19 [History] Allergy/AdvReac Type Severity Reaction Status Date / Time antihistamines AdvReac Numbness Uncoded 03/12/19 22:05 - Meds/Allergy Pre-op Review Medications Reviewed: Yes Allergies Reviewed: Yes Beta Blockers on Current Med List: Yes (coreg) If Beta Blockers taken, Date/Time (Last Dose taken): today 958 Anesthesia Results - Labs 03/14/19 05:35 03/14/19 05:35 - Imaging EKG: report reviewed (SINUS BRADYCARDIA RIGHT BUNDLE BRANCH BLOCK) Anesthesia Exam Selected Entries 03/14/19 12:02 Temperature 97.5 F L Pulse Rate 76 Respiratory Rate 18 Blood Pressure 128/70 O2 Sat by Pulse Oximetry 96 Oxygen Delivery Method Nasal Cannula Weight: 89kg - HEENT Pupil (Motor): EOMI Mallampati: II Teeth: Normal Oral Opening: Less than or equal to 3 - SKI TOW OPERATOR LOC: Oriented SKI TOW OPERATOR Motor: Normal RUE, Normal LUE, Normal RLE, Normal LLE, Normal Face SKI TOW OPERATOR Sensory: Normal: RUE, LUE, RLE, LLE, Face - Cardiac Rhythm: Regular Murmur: None - Pulmonary Breath Sounds: bilateral Clear Respiratory Effort: Symmetrical Anesthesia Assess/Plan ASA Score: 2 Level of consciousness: Cooperative, Oriented Anesthetic Plan: General Monitoring Plan: Standard Monitors Recovery Plan: PACU (agrees to GA)
[2019-03-14] MEDS ORDERED: Ondansetron 4 MG/2 ML VIAL ONE (13:13)
[2019-03-14] MEDS ORDERED: Lidocaine -MPF 2% 2 ML VIAL ONE (13:13)
[2019-03-14] MEDS ORDERED: Dexamethasone 4 MG/ML VIAL ONE (13:13)
[2019-03-14] MEDS ORDERED: *HR* Rocuronium Bromide 50 MG/5 ML VIAL ONE (13:13)
[2019-03-14] MEDS ORDERED: *HR* Midazolam HCl 2 MG/2 ML VIAL ONE (13:16)
[2019-03-14] MEDS ORDERED: *HR* Propofol 200 MG/20 ML VIAL IVP ONE (13:22)
[2019-03-14] MEDS ORDERED: Ketorolac 30 MG/ML VIAL ONE (13:23)
[2019-03-14] MEDS: Ringers Solution, Lactated 1,000 ML IVC SCH (14:02)
--- NOTE | 2019-03-14 16:12 | Anesthesia Evaluation Post Op ---
Date of Encounter: 03/14/19 Time of Encounter: 15:55 - Discharge PostOp Status: Transfer Patient to floor (Patient's vital signs have been reviewed. Patient is stable postoperatively and has adequately recovered from anesthesia. Patient is determined to have stable airway patency and respiratory function including respiratory rate and oxygen saturation. Patient has a stable heart rate, blood pressure and adequate hydration. Patients mental status is acceptable. Patients temperature is appropriate. Pain and nausea are adequately controlled)
[2019-03-15] MEDS: cefOXitin 2,000 MG in Water for inj. (sterile) 20 ML IVP SCH ×2 (03:15→07:38)
[2019-03-15] MEDS: amLODIPine 5 MG TABLET PO SCH (07:33)
[2019-03-15] MEDS: Pantoprazole 40 MG VIAL IVP SCH (07:38)
[2019-03-15 07:57] LABS: Basophils % 0.1 %; Hematocrit 42.7 % (37.5-50.1); Hemoglobin 14.3 g/dL (12.9-16.9); Immature Granulocytes % 0.4 % (0-4); Lymphocytes # 1.2 K/mcL (0.6-4.6); Lymphocytes % 10.9 %; Mean Corpuscular HGB Conc 33.5 g/dL (31.6-35.5); Mean Corpuscular Hemoglobin 31.4 pg (28.0-33.3); Mean Corpuscular Volume 93.6 fL (83.0-100.0); Mean Platelet Volume 10.7 fL (9.4-12.4); Monocytes # 0.7 K/mcL (0.0-1.3); Monocytes % 6.3 %; Neutrophils # 8.9 K/mcL (1.6-8.9); Platelet Count 199 K/mcL (140-400); Red Blood Count 4.56 M/mcL (4.19-5.50); Red Cell Distribution Width 13.1 % (11.5-14.5); Segmented Neutrophils % 82.3 %
[2019-03-15 07:58] LABS: White Blood Count 10.8 K/mcL (4.3-11.1)
[2019-03-15 08:19] LABS: Alanine Aminotransferase 184 Units/L (7-52); Albumin 3.6 g/dL (3.5-5.7); Albumin/Globulin Ratio 1.5 (1.1-2.2); Alkaline Phosphatase 135 Units/L (34-104); Amylase 30 Units/L (29-103); Aspartate Amino Transferase 90 Units/L (13-39); BUN/Creatinine Ratio 18 (6-26); Bilirubin,Direct 0.2 mg/dL (0.0-0.2); Bilirubin,Indirect 0.3 mg/dL (0.0-1.2); Bilirubin,Total 0.5 mg/dL (0.3-1.0); Blood Urea Nitrogen 17 mg/dL (8-23); Calcium 8.6 mg/dL (8.6-10.3); Carbon Dioxide 29 mEq/L (23-29); Chloride 103 mEq/L (98-107); Globulin 2.4 g/dL (2.4-3.5); Glucose 127 mg/dL (70-105); Lipase 29 Units/L (11-82); Osmolality,Calculated 293 (280-300); Potassium 4.6 mEq/L (3.5-5.1); Sodium 140 mEq/L (136-145); eGFR For African Americans > 60 (> 60); eGFR For Non-African Americans > 60 (> 60)
--- NOTE | 2019-03-15 08:24 | Discharge Summary ---
Orders not resulted at time of discharge: Pending orders 03/13/19 17:00 Surgical Pathology [PTH] Routine Date of Encounter: 03/15/19 Time of Encounter: 08:21 - Discharge Diagnosis (1) Cholecystitis Priority: Primary Status: Resolved (2) HTN, goal below 130/80 Priority: Secondary Status: Chronic (3) Smoking history Priority: Secondary Status: Acute General Surgery Exam Initial Vital Signs Temp Pulse Resp BP Pulse Ox 97.6 F 60 16 126/66 99 03/12/19 22:03 03/12/19 22:03 03/12/19 22:03 03/12/19 22:03 03/12/19 22:03 Vital Signs Temp Pulse Resp BP Pulse Ox 03/15/19 06:38 97.5 F L 49 16 163/73 94 03/15/19 03:52 97.9 F 52 16 120/67 96 03/14/19 23:19 98.4 F 58 14 104/65 96 03/14/19 18:15 97.4 F L 68 16 158/81 96 03/14/19 17:47 97.4 F L 57 16 149/72 98 03/14/19 16:45 97.4 F L 69 17 158/68 94 03/14/19 16:22 97.4 F L 50 16 167/68 96 03/14/19 15:59 98.1 F 47 12 156/73 97 03/14/19 15:49 47 12 150/73 98 03/14/19 15:39 46 12 146/72 95 03/14/19 15:29 97.8 F 57 12 133/72 100 03/14/19 13:57 97.5 F L 50 18 127/67 99 03/14/19 12:02 97.5 F L 76 18 128/70 96 Intake and Output 03/14/19 03/15/19 03/15/19 23:59 07:59 15:59 Intake Total 2039 620 / 620 Output Total 970 / 990 Balance -925 / 1050 600 / 600 Intake: IV Fluids 2039 620 / 620 0.9 % Sodium Chloride 1,000 ML 600 / 600 @ 75 mls/hr IVC .[id number] [facility] Rx #:[id number] Lactated Ringers 1,000 ML @ 50 25 / 1000 mls/hr IVC .Q20H DEN[facility] Rx#: [id number] Mefoxin 2,000 MG In Water for inj. (sterile) 20 ML @ 300 mls/ hr IVP Q8HR [facility] Rx#:[id number] Oral 0 / 0 Output: Urine 950 / 950 Wound Drainage Right Abdomen Other: Weight 89.2 kg Blood Glucose* 136 Patient Weight 03/15/19 23:59 Weight 89.2 kg VITAL SIGNS: Reviewed. See [facility] GENERAL: In no apparent distress. HEENT: Normocephalic, atraumatic, pupils are equal and reactive, extraocular motions intact, oropharynx is pink and moist, there is no neck adenopathy or JVD noted. CHEST/RESPIRATORY: The thorax is free from signs of trauma. Lung sounds: clear to auscultation, normal respiratory effort CARDIAC: Regular rate and rhythm. Normal S1 and S2, without murmurs, gallops, or rubs. VASCULAR: No Edema. 2+ peripheral pulses. ABDOMEN: soft, expected postoperative tenderness, active bowel sounds INCISION: Surgical incision is clean, dry, and intact. There are no signs of cellulitis or infection noted. WOUNDS/DRAINS: JERRY site is unremarkable. There is no evidence for bile leak. We will remove the drain prior to discharge MUSCULOSKELETAL: Good range of motion of all major joints. Extremities without clubbing, cyanosis or edema. NEUROLOGIC EXAM: Alert and oriented x 3. Speech normal. Follows commands. PSYCHIATRIC: Mood normal. SKIN: No rash or lesions. - Hospital Course Hospital course: Mr. Childers is a 68 year old male who presented on 03/13/2019 for symptomatic cholelithiasis/acute cholecystitis. He was sent over here from the [place]. He was originally planned to see Dr. Sharp in the office on 03/12/2018 to plan for an elective cholecystectomy however that appointment was canceled pending [place] of approval. He presented to the emergency department on the mentioned date with complaints as previously noted. He was taken to the operating room on 03/13/2019 where he underwent a laparoscopic cholecystectomy, drain placement, and intraoperative cholangiogram which noted choledocholithiasis with distal impaction. The patient underwent ERCP on 03/14/2019. His follow-up bilirubin, amylase, and lipase are normal. There is no evidence for post-ERCP pancreatitis. He is ambulating and voiding without difficulty, tolerating a diet without nausea or vomiting, vital signs are stable, and he is afebrile. We will remove his JERRY drain and begin discharge planning to home with a follow-up in the office in approximately 2 to 3 weeks. Time spent discussing smoking cessation with patient: 3 to 10 minutes - Time Spent with Patient Total time spent providing and/or coordinating discharge services: - Discharge Medications Prescriptions: New Docusate Sodium [Colace] 100 mg PO BID PRN #30 capsule PRN Reason: Contstipation Ibuprofen 800 mg PO Q8H PRN #30 tablet PRN Reason: Postsurgical pain OxyCODONE/APAP 5/325 [Percocet 5/325 MG] 1 each PO Q6HR PRN 7 Days #28 tablet PRN Reason: Pain Ondansetron ODT [Zofran ODT] 4 mg SL Q4HR PRN #15 tab.rapdis PRN Reason: Postsurgical nausea Continued Lisinopril 30 mg PO DAILY Carvedilol [Coreg] 6.25 mg PO BID Amlodipine Besylate 10 mg PO DAILY Pravastatin Sodium [Pravachol] 40 mg PO DAILY Aspirin [Adult Aspirin] 81 mg PO DAILY Home Medications: Amlodipine Besylate 10 mg PO DAILY 03/10/19 [History] Carvedilol [Coreg] 6.25 mg PO BID 03/10/19 [History] Lisinopril 30 mg PO DAILY 03/10/19 [History] Pravastatin Sodium [Pravachol] 40 mg PO DAILY 03/10/19 [History] Aspirin [Adult Aspirin] 81 mg PO DAILY 03/13/19 [History] Docusate Sodium [Colace] 100 mg PO BID PRN #30 capsule 03/15/19 [Rx] Ibuprofen 800 mg PO Q8H PRN #30 tablet 03/15/19 [Rx] Ondansetron ODT [Zofran ODT] 4 mg SL Q4HR PRN #15 tab.rapdis 03/15/19 [Rx] OxyCODONE/APAP 5/325 [Percocet 5/325 MG] 1 each PO Q6HR PRN 7 Days #28 tablet 03/15/19 [Rx] Allergies/Adverse Reactions: Allergy/AdvReac Type Severity Reaction Status Date / Time antihistamines AdvReac Numbness Uncoded 03/12/19 22:05 Date of admission: 03/13/19 01:22 [facility] care physician: [facility] Consults: 03/13/19 09:13 Consult to Respiratory Therapy [CONS] Stat Reason for Consult: manny casandra cook prior to surgery Time Notified: 09:14 Call Completed: Yes Discharging clinician: Nakul Fay (Desirae Del Angel APRN) Anticipated date of discharge: 03/15/19 Labs on day of discharge: Labs from last 24 hours 03/15/19 03/15/19 03/14/19 07:29 07:29 17:45 WBC 10.8 D RBC 4.56 Hgb 14.3 Hct 42.7 MCV 93.6 MCH 31.4 MCHC 33.5 RDW 13.1 Plt Count 199 MPV 10.7 Immature Gran % 0.4 Seg Neutrophils % 82.3 Lymphocytes % 10.9 Monocytes % 6.3 Eosinophils % 0.0 Basophils % 0.1 Neutrophils # 8.9 Lymphocytes # 1.2 Monocytes # 0.7 Eosinophils # 0.0 Basophils # 0.0 Sodium 140 Potassium 4.6 Chloride 103 Carbon Dioxide 29 BUN 17 Creatinine 0.93 Est GFR ( Amer) > 60 Est GFR (Non-Af Amer) > 60 BUN/Creatinine Ratio 18 Glucose 127 H POC Glucose 136 H Calculated Osmolality 293 Calcium 8.6 Total Bilirubin 0.5 Direct Bilirubin 0.2 Indirect Bilirubin 0.3 AST 90 H ALT 184 H Alkaline Phosphatase 135 H Serum Total Protein 6.0 L Albumin 3.6 Globulin 2.4 Albumin/Globulin Ratio 1.5 Amylase 30 Lipase 29 03/14/19 03/14/19 03/14/19 12:00 05:57 05:35 WBC RBC Hgb Hct MCV MCH MCHC RDW Plt Count MPV Immature Gran % Seg Neutrophils % Lymphocytes % Monocytes % Eosinophils % Basophils % Neutrophils # Lymphocytes # Monocytes # Eosinophils # Basophils # Sodium 134 L Potassium 4.8 Chloride 102 Carbon Dioxide 26 BUN 17 Creatinine 0.87 Est GFR ( Amer) > 60 Est GFR (Non-Af Amer) > 60 BUN/Creatinine Ratio 20 Glucose 158 H POC Glucose 139 H 153 H Calculated Osmolality 283 Calcium 8.6 Total Bilirubin 0.8 Direct Bilirubin 0.2 Indirect Bilirubin 0.6 AST 233 H ALT 278 H Alkaline Phosphatase 145 H Serum Total Protein 5.8 L Albumin 3.7 Globulin 2.1 L Albumin/Globulin Ratio 1.8 Amylase Lipase - Impressions ITS Impressions Cholangiogram,Operative 03/13/19 16:35 IMPRESSION: Choledocholithiasis with stone in the distal common bile duct causing mild biliary ductal dilatation. Status post cholecystectomy without evidence of leak. D/ / 03/13/2019 17:09:19 Gaston Robles MD / leslee Interpreting Provider: Gaston Robles MD Cath/Invasive Procedure 03/14/19 00:00 IMPRESSION: ERCP images demonstrating choledocholithiasis and placement of a common bile duct stent status post cholecystectomy. D/ / 03/14/2019 15:30:40 Gaston Robles MD / vel Interpreting Provider: Gaston Robles MD - Patient Status Disposition: Home, Self-Care Condition: Good Functional capacity at discharge: independent ambulation Overall status at discharge: patient is progressing back to baseline - Discharge Instructions Instructions: Laparoscopic Cholecystectomy (DC), How to Stop Smoking (DC), Cigarette Smoking and Your Health (GEN) Follow Up With: Meseret Del Angel CNP [Advanced Practice Nurse] - 03/27/19 3:30 pm [facility],PCP [Primary Care Provider] - Additional Instructions: General Surgical Discharge Instructions 1. No pushing, pulling, or lifting greater than 15 lbs for 4 weeks (depending upon procedure). 2. You may remove your dressings and shower beginning today, but no tub baths, soaking, or swimming for 2 weeks. 3. No driving for one weeks unless otherwise specified and then you may resume driving when you are off narcotics and are safe to react in a car. 4. Take ibuprofen every 8 hours for discomfort. If this does not relieve discomfort, you may take the as needed Percocet. Eat a small snack with pain medication as this will help reduce the risk of nausea. Take narcotics as directed. Do not take more narcotics then directed and do not share your narcotics with any other person. Do not drink alcohol while on narcotics. You can take the Zofran/ondansetron if needed for nausea or with a dose of narcotics to prevent nausea. 5. Take stool softeners (Colace) or a water based laxative (Miralax) while taking narcotics. You may hold for loose stools. 6. Report any fevers greater than 100.5F, increase abdominal discomfort, drainage that looks like pus, increased redness or pain at the surgical site, or any vomiting. 7. Report any pain in the calves, shortness of breath, or rapid heartbeat. 8. Follow-up in the office as directed. 9. If you were prescribed antibiotics, do not stop them without talking to your provider. - Diet and Activity Activity: increase activity as tolerated Diet: advance to your usual diet
[2019-03-15] MEDS ORDERED: Aspirin Enteric Coated 81 MG Tablet PO SCH (09:00)
[2019-03-15] MEDS: Ringers Solution, Lactated 1,000 ML IVC SCH (10:12)
[2019-03-15 10:30] VITALS: BP 115/57
== END 2019-03-15 11:16 | disposition home or self-care (01) ==
LOC: 3ANU 21:57 → EMEROOARM 21:57 → 3ANU 03-13 01:55
PROVIDERS: ADMIT Surgery; ATTEND Surgery